=== PATIENT | female | born 1965 ===

== ENCOUNTER 2024-12-14 19:49 | Emergency (ER) | payer OTHER, SELFPAY ==
--- NOTE | ~2024-12-14 | CT_ITS ---
CLINICAL HISTORY: severe periumbilical pain n v CT abdomen and pelvis with contrast Comparison: None Findings: Small hiatal hernia. Hypodense liver. Cholecystectomy. Abdominal solid organs are otherwise unremarkable. No urolithiasis. No bowel obstruction, pneumoperitoneum, or pneumatosis. Mesenteric vessels patent. Uterus and left ovary unremarkable. Right ovarian cyst 1.5 cm. Appendectomy. No ascites or hernia. Posterior stabilization hardware L4-S1. No apparent hardware complications. No acute fractures. IMPRESSION: 1. The umbilicus and surrounding tissues are normal. 2. Fatty liver. 3. Small right ovarian cyst. Recommend nonemergent ultrasound characterization and follow-up as needed. 4. Additional nonacute findings as above. This document has been electronically signed by: Tony Price MD on 12/14/2024 23:38:56
[2024-12-14 20:02] VITALS: BP 138/73; PULSE 99; RESP 18; TEMP 36.3; O2SAT 96; BMI 31.1
--- NOTE | 2024-12-14 20:02 | ED_ITS ---
HPI - General Adult General Chief complaint: Abdominal Pain Stated complaint: abd pain/vomiting Time Seen by Provider: 12/14/24 22:12 Source: patient and family Mode of arrival: ambulatory Limitations: no limitations History of Present Illness ED Provider: SARAI HPI narrative: 59 yo female hx of hiatal hernia, prior gallbladder removal, prior appendectomy, asthma visiting family from [place] who notes she woke up with mild headache and not feeling well with n/v. She took medications and felt better until tonight when she had more epigastric pain n/v. No diarrhea. No one else is sick. She denies food exposures or ingestions to make this worse. MD complaint: n/v pain Onset (ago): hour(s) (several) Location: abdomen Radiation: non-radiation Severity: moderate Quality: aching Pain Consistency: constant Relieving factors: none Exacerbating factors: eating Associated symptoms: loss of appetite and nausea/vomiting Treatments prior to arrival: none Related Data Previous Rx's ?Medication ?Instructions ?Recorded ondansetron 4 mg disintegrating 4 mg PO Q8H PRN nausea and 12/15/24 tablet vomiting #20 tabs sucralfate 100 mg/mL oral 10 ml PO BID 7 days #140 mL 12/15/24 suspension (Carafate) Allergies Allergy/AdvReac Type Severity Reaction Status Date / Time No Known Allergies Allergy Verified 12/14/24 20:02 Review of Systems 2 Review of Systems: Constitutional : No Weight loss, No Fever, No Chills ENT/Mouth : No sore throat, No Rhinorrhea Eyes: No Swelling, No Redness Cardiovascular : No Chest Pain, No SOB, NoEdema Respiratory : No Cough, No Sputum, No Wheezing Gastrointestinal : Positive Nausea, Positive Vomiting, no Diarrhea, positive abdominal Pain, No Hematochezia, No Melena Genitourinary : No Dysuria, No Urinary Frequency, No Hematuria, No Urgency Musculoskeletal : No joint pain, No Myalgias, No Joint Swelling Skin : No Skin Lesions, No rash Neuro : No Weakness, No Numbness, No Dizziness, No Headache All other systems reviewed and are negative. [facility] Past Medical History Attestation statement: The following information was validated with the patient. Source: old records reviewed Medical History Asthma Hiatal hernia Social History Social History (Updated 12/14/24 @ 22:54 by Elisa Billingsley DO) Patient Tobacco Use Status: Never used Tobacco Advance Directives: No Advance Directives Information Provided: No Do you have a plan to hurt others: No Plan Physical Exam ED Vital Signs: Vital Signs - 24 hr 12/14/24 20:02 12/15/24 00:14 12/15/24 03:50 Temperature 97.4 F 99.2 F 99.0 F Pulse Rate 99 87 84 Respiratory Rate 18 18 16 Blood Pressure 138/73 125/61 116/70 Pulse Oximetry 96 93 97 Oxygen Delivery Method Room Air Room Air Room Air BMI result Body Mass Index 31.1 Appearance: Alert. Oriented X3. No acute distress. Eyes: Pupils equal, round and reactive to light. ENT: Pharynx normal. Neck: Normal inspection. Neck supple. CVS: Normal heart rate and rhythm. Pulses normal. Respiratory: No respiratory distress. Breath sounds normal. Abdomen: Soft and moderate epigastric ttp no rebound or guarding Skin: Skin warm and dry. Normal skin color. Normal skin turgor. Extremities: No lower extremity edema. No calf ttp Neuro: Oriented X 3. No motor deficit. No sensory deficit. CN2-12 intact Course Course Course Narrative: RME performed by Blanca Holder PA-C. Patient is a 59 year old assigned female at presenting to the emergency department with abdominal pain, nausea, and vomiting. Detailed physical exam and review of systems are deferred to the department clinician. EKG, labs, and swabs ordered. Patient placed back in the waiting room pending room availability and results. Reevaluation(s) Reevaluation #1: still asking for pain meds and nausea medications - given repeat doses. will monitor given lack of findings on work up signed out to Dr. Glover Medications Administered Discontinued Medications Generic Name Dose Route Start Last Admin Trade Name Freq PRN Reason Stop Dose Admin Al Hydroxide/Mg Hydroxide 15 ml 12/14/24 23:48 12/15/24 00:04 Magnesium Hydrox/Alum Hydrox 30 Ml Oral.Susp PO 12/14/24 23:49 15 ml ONCE ONE Administration Iohexol 85 ml 12/14/24 22:58 12/14/24 22:59 Iohexol 350 Mg/Ml 100 Ml Infus..Btl IV 12/14/24 22:59 85 ml ONCE ONE Administration Lidocaine HCl 15 ml 12/14/24 23:48 12/15/24 00:04 Lidocaine Hcl Viscous 2 % 15 Ml Solution MUCOUS MEM 12/14/24 23:49 15 ml ONCE ONE Administration Lorazepam 1 mg 12/15/24 01:27 12/15/24 01:56 Lorazepam 2 Mg/Ml Vial IVPUSH 12/15/24 01:28 1 mg STAT STA Administration Metoclopramide HCl 10 mg 12/15/24 00:00 12/15/24 00:04 Metoclopramide Hcl 10 Mg/2 Ml Vial IVPUSH 12/15/24 00:01 10 mg ONCE ONE Administration Morphine Sulfate 4 mg 12/14/24 22:28 12/14/24 23:11 Morphine Sulfate 4 Mg/Ml Cartridge IVPUSH 12/14/24 22:29 4 mg ONCE ONE Administration Protocol Morphine Sulfate 4 mg 12/14/24 23:48 12/15/24 00:04 Morphine Sulfate 4 Mg/Ml Cartridge IVPUSH 12/14/24 23:49 4 mg ONCE ONE Administration Protocol Ondansetron HCl 4 mg 12/14/24 22:28 12/14/24 23:11 Ondansetron Hcl 4 Mg/2 Ml Vial IVPUSH 12/14/24 22:29 4 mg ONCE ONE Administration Medical Decision Making Medical Decision Making [facility] Narrative: 59 yo female hx of hiatal hernia, prior gallbladder removal, prior appendectomy, asthma here with c/o upper abdominal pain has hx of hiatal hernia denies food exposures or cause of this at this time will need basic labs, EKG, CT scan to rule out any obstruction/perforation. I have ordered IV morphine as well. patient's CT scan does not show any acute abnormality. Likely fatty liver. Patient overall feeling much better. Patient ready for discharge Differential Diagnosis Differential Diagnoses: The differential diagnosis associated with the presentation includes gastritis, GERD, SBO, perforation Admission/Observation Consideration of admission/observation: Escalation of care including admission/observation considered CT scan negative LFTs likely due to fatty liver given repeat IV morphine GI cocktail no signs of obstruction and EKG/labs reassuring Lab Data [facility] Lab Attestation statement: I reviewed the patient's lab results. 12/14/24 21:09 12/14/24 21:09 Labs: Lab Results 12/14/24 Range/Units 21:09 WBC 9.5 (4.8-10.8) X10*3/uL RBC 4.64 (4.20-5.50) X10*6/uL Hgb 14.2 (12.0-16.0) g/dl Hct 40.3 (37.0-47.0) % MCV 86.9 (80.0-98.0) fL MCH 30.6 (27.0-33.0) pg MCHC 35.2 H (31.0-35.0) g/dl RDW 13.1 (11.0-16.0) % Plt Count 216 (160-400) X10*3/uL MPV 11.4 (9.4-12.3) fL Immature Gran % (Auto) 0.2 (0.0-0.4) % Neut % (Auto) 80.7 H (45-73) % Lymph % (Auto) 12.1 L (20-40) % [place] % (Auto) 5.7 (2-11) % Eos % (Auto) 1.1 (0-4) % Baso % (Auto) 0.2 (0-2) % Lymph # (Auto) 1.2 (1.2-4.9) X10*3/uL [place] # (Auto) 0.5 (0.1-1.2) X10*3/uL Eos # (Auto) 0.1 (0.0-0.4) X10*3/uL Baso # (Auto) 0.0 (0.0-0.2) X10*3/uL Abs Immat Gran (auto) 0.02 (0.00-0.03) X10*3/uL Absolute Neuts (auto) 7.7 (2.0-8.3) x10*3/uL Absolute Nucleated RBC 0.000 (0.0-0.012) X10*3/uL Nucleated RBC % (auto) 0.0 (0.0-0.2) /100WBC PT 11.6 (10.9-12.4) SEC INR 1.0 (0.9-1.1) APTT 34.2 (26.0-36.8) SEC Sodium 142 (135-145) mmol/L Potassium 4.0 (3.3-5.1) mmol/L Chloride 106 (96-108) mmol/L Carbon Dioxide 26 (22-29) mmol/L Anion Gap 14 (12-20) BUN 13 (9-16) mg/dL Creatinine 0.73 (0.5-1.4) mg/dL Estim Creat Clear Calc 93.4 Estimated GFR > 60 Random Glucose 118 H (60-115) mg/dL Calcium 9.8 (8.4-10.2) mg/dL Magnesium 2.2 (1.6-2.6) mg/dL Total Bilirubin 0.4 (0.0-1.0) mg/dL AST 70 H (5-31) U/L ALT 72 H (0-31) U/L Alkaline Phosphatase 126 H (39-117) U/L Troponin I High Sens < 2.7 (<3.5-17.0) ng/L Total Protein 8.0 (6.5-8.0) g/dL Albumin 4.4 (3.5-5.0) g/dL Lipase 21 (8-78) U/L Urine Color Yellow Urine Appearance Clear Urine pH 5.5 (5.0-9.0) Ur Specific [place] >= 1.030 H (1.005-1.025) Urine Protein Negative (Neg-Trace) mg/dL Urine Glucose (UA) Negative (Negative) mg/dL Urine Ketones Negative (Negative) mg/dL Urine Blood Trace H (Negative) Urine Nitrite Negative (Negative) Ur Leukocyte Esterase Negative (Negative) Urine RBC 0-2 (0-2) /HPF Urine WBC 0-5 (0-5) /HPF Ur Squamous Epith Cells 0-2 (0-2) /HPF Urine Bacteria None Seen (None Seen) Hyaline Casts 0-2 (0-2) /LPF Influenza Type A (PCR) NEGATIVE (Negative) Influenza Type B (PCR) NEGATIVE (Negative) RSV RNA Qual (PCR) NEGATIVE (Negative) SARS-CoV-2 RNA (RT-PCR) NEGATIVE (Negative) Independent Interpretation I performed an independent interpretation of an: EKG and CT Scan (fatty liver) Interpretation: Rate: 93 Rhythm: NSR [place]: normal Normal P waves. Normal [place]AN[place]. Normal QRS complex. ST T wave : no ELISHA, artifact noted qTC:437 prior studies: no acute ischemia The study has been interpreted contemporaneously by me. . Radiology Impression Discussion of test interpretation with radiology: I have reviewed the radiologist's reading. Independent Historian Clinical information obtained from an independent historian. History obtained from or confirmed by: Other (family) External Record Review External record reviewed: Outpatient record Prescription Management I considered prescription management with: Other Critical Care Time Critical Care Time Critical Care Time: Yes Total Critical Care Time: 45 Attestation: repeat IV morphine with improvement in pain I attest to this time spent taking care of the patient Discharge Plan Discharge Clinical Impression: Abdominal pain Qualifiers: Abdominal location: epigastric Qualified Code(s): R10.13 - Epigastric pain Gastritis Qualifiers: Gastritis type: unspecified gastritis Chronicity: acute Gastritis bleeding: w ithout bleeding Qualified Code(s): K29.00 - Acute gastritis without bleeding Patient Disposition: Home, Self-Care Instructions: Gastritis (ED), Abdominal Pain (ED) Additional Instructions: rest and stay hydrated bland diet for 48 hours then advance slowly return for any worsening symptoms or pain labs reassuring other than mild elevation in liver function tests but this is likely due to fatty liver follow up with your doctor for ovarian ultrasound this is incidental and not the cause of your pain. Findings: Small hiatal hernia. Hypodense liver. Cholecystectomy. Abdominal solid organs are otherwise unremarkable. No urolithiasis. No bowel obstruction, pneumoperitoneum, or pneumatosis. Mesenteric vessels patent. Uterus and left ovary unremarkable. Right ovarian cyst 1.5 cm. Appendectomy. No ascites or hernia. Posterior stabilization hardware L4-S1. No apparent hardware complications. No acute fractures. IMPRESSION: 1. The umbilicus and surrounding tissues are normal. 2. Fatty liver. 3. Small right ovarian cyst. Recommend nonemergent ultrasound characterization and follow-up as needed. 4. Additional nonacute findings as above. Prescriptions: New sucralfate [Carafate] 100 mg/mL suspension 10 ml PO BID 7 Days Qty: 140 0RF ondansetron 4 mg tablet,disintegrating 4 mg PO Q8H PRN (Reason: nausea and vomiting) Qty: 20 0RF Print Language: Czech
--- NOTE | 2024-12-14 20:03 | ECG_ITS ---
Test Reason : EPIGASTRIC PAIN Blood Pressure : */* mmHG Vent. Rate : 93 BPM Atrial Rate : 93 BPM P-R Int : 162 ms QRS Dur : 80 ms QT Int : 352 ms P-R-T Axes : 40 73 45 degrees QTcB Int : 437 ms Normal sinus rhythm Possible Left atrial enlargement Nonspecific ST abnormality Abnormal ECG When compared with ECG of 12-Mar-2002 09:30, No significant change was found Referred By: Blanca Holder Electronically Signed By: REKHA CARRIZALES
--- NOTE | 2024-12-14 21:09 | MHC.EDTECH ---
Patient brought into triage area,EKG taken per order and signed by provider,labs,urine,and sars/flu/rsv obtained and sent to lab.
[2024-12-14 21:21] LABS: Appearance Urine Clear; Basophils Percent Auto 0.2 % (0-2); Color Urine Yellow; Eosinophils Absolute Auto 0.1 X10*3/uL (0.0-0.4); Eosinophils Percent Auto 1.1 % (0-4); Glucose Urine UA Negative (Negative); Hematocrit 40.3 % (37.0-47.0); Hemoglobin 14.2 g/dl (12.0-16.0); Imm Gran Abs Auto 0.02 X10*3/uL (0.00-0.03); Imm Gran Pct Auto 0.2 % (0.0-0.4); Leukocyte Esterase Urine Negative (Negative); Lymphocytes Absolute Auto 1.2 X10*3/uL (1.2-4.9); Lymphocytes Percent Auto 12.1 % (20-40); MANUAL DIFF FLAG NO; Mean Corpuscular HGB Conc 35.2 g/dl (31.0-35.0); Mean Corpuscular Hemoglobin 30.6 pg (27.0-33.0); Mean Corpuscular Volume 86.9 fL (80.0-98.0); Mean Platelet Volume 11.4 fL (9.4-12.3); Monocytes Absolute Auto 0.5 X10*3/uL (0.1-1.2); Monocytes Percent Auto 5.7 % (2-11); Neutrophils Absolute Auto 7.7 x10*3/uL (2.0-8.3); Neutrophils Percent Auto 80.7 % (45-73); Nitrite Urine Negative (Negative); PH 5.5 (5.0-9.0); Platelet Count 216 X10*3/uL (160-400); Red Blood Count 4.64 X10*6/uL (4.20-5.50); Red Cell Distribution Width 13.1 % (11.0-16.0); Specific Gravity - Urine >= 1.030 (1.005-1.025); UMIC TRIGGER UACC YES; Urine Blood Trace (Negative); Urine Ketones Negative (Negative); Urine Protein Negative (Neg-Trace); White Blood Count 9.5 X10*3/uL (4.8-10.8)
[2024-12-14 21:24] LABS: Bacteria Urine None Seen (None Seen); Hyaline Casts Urine 0-2 /LPF (0-2); RBC Urine 0-2 /HPF (0-2); Squamous Epithelial Cell Urine 0-2 /HPF (0-2); WBC Urine 0-5 /HPF (0-5)
[2024-12-14 21:26] LABS: Prothrombin Time 11.6 SEC (10.9-12.4)
[2024-12-14 21:29] LABS: Partial Thromboplastin Time 34.2 SEC (26.0-36.8)
[2024-12-14 21:34] LABS: Alanine Aminotransferase 72 U/L (0-31); Albumin Level 4.4 g/dL (3.5-5.0); Alkaline Phosphatase 126 U/L (39-117); Anion Gap 14 (12-20); Aspartate Amino Transferase 70 U/L (5-31); Bilirubin Total 0.4 mg/dL (0.0-1.0); Blood Urea Nitrogen 13 mg/dL (9-16); Calcium 9.8 mg/dL (8.4-10.2); Carbon Dioxide 26 mmol/L (22-29); Chloride 106 mmol/L (96-108); Creatinine Clr Calc Pharmacy 93.4; Estimated Glomerular Filt Rate > 60; Glucose Random 118 mg/dL (60-115); Magnesium 2.2 mg/dL (1.6-2.6); Sodium 142 mmol/L (135-145)
[2024-12-14 21:51] LABS: Troponin-I High Sensitivity < 2.7 ng/L (<3.5-17.0)
[2024-12-14 21:53] LABS: Lipase 21 U/L (8-78)
[2024-12-14 21:58] LABS: Influenza A PCR NEGATIVE (Negative); Influenza B PCR NEGATIVE (Negative); Resp Syncy Virus RNA Qual PCR NEGATIVE (Negative); SARS COV2 PCR INHOUSE NEGATIVE (Negative)
[2024-12-14] MEDS: iohexoL 350 MG/ML 100 ML INFUS..BTL 85 ML IV (22:59)
[2024-12-14] MEDS: ondansetron HCL 4 MG/2 ML VIAL IVPUSH (23:11)
[2024-12-14] MEDS: Morphine Sulfate 4 MG/ML CARTRIDGE IVPUSH (23:11)
[2024-12-15] MEDS: Metoclopramide HCl 10 MG/2 ML VIAL IVPUSH (00:04)
[2024-12-15] MEDS: Lidocaine HCl Viscous 2 % 15 ML SOLUTION MUCOUS MEM (00:04)
[2024-12-15] MEDS: Magnesium Hydrox/Alum Hydrox 30 ML ORAL.SUSP 15 ML PO (00:04)
[2024-12-15] MEDS: Morphine Sulfate 4 MG/ML CARTRIDGE IVPUSH (00:04)
[2024-12-15 00:14] VITALS: BP 125/61; PULSE 87; RESP 18; TEMP 37.3; O2SAT 93
[2024-12-15] MEDS: LORazepam 2 MG/ML VIAL 1 MG IVPUSH (01:56)
--- NOTE | 2024-12-15 02:25 | PC.NURSE ---
Sister Maria M [phone]
[2024-12-15 03:50] VITALS: BP 116/70; PULSE 84; RESP 16; TEMP 37.2; O2SAT 97
--- NOTE | 2024-12-15 06:35 | PC.NURSE ---
Called sister for pickup
== END 2024-12-15 07:00 | disposition home or self-care (01) ==
PROVIDERS: Physician Assistant Medical; Emergency Provider Emergency Medicine
DX: K29.00 Acute gastritis without bleeding (principal); R10.13 Epigastric pain; R51.9 Headache, unspecified; R11.2 Nausea with vomiting, unspecified; Z03.818 Encounter for observation for suspected exposure to other biological agents ruled out; J45.909 Unspecified asthma, uncomplicated
CPT/HCPCS: 0241U; 74177; 80053; 81001; 83690; 83735; 84484; 85025; 85610; 85730; 93005; 96374; 96375; 96376; 99284; J2060; J2270; J2405; J2765; Q9967

== ENCOUNTER → 2024-12-14 20:03 | Outpatient (BNV) | payer OTHER, SELFPAY | PROVIDERS: Emergency Provider Emergency Medicine; Visit Provider Internal Medicine | DX: R94.31 Abnormal electrocardiogram [ECG] [EKG] (principal); R10.13 Epigastric pain | CPT/HCPCS: 93010 ==

== ENCOUNTER → 2024-12-14 22:28 | Outpatient (BNV) | payer OTHER, SELFPAY | PROVIDERS: Emergency Provider Emergency Medicine; Visit Provider Radiology Diagnostic Radiology | DX: R10.9 Unspecified abdominal pain (principal); R11.10 Vomiting, unspecified | CPT/HCPCS: 74177 ==